=== PATIENT | female | born 1935 | race Caucasian/White ===

== ENCOUNTER 2016-06-30 15:35 | Emergency (ER) | payer MEDICARE, OTHER ==
[~2016-06-30 15:35] MED LIST: AMITIZA24 MCG PO; CALCIUM 600 +1 EAC3 PO; CEFDINIR300 MG PO; COUMADIN5 MG PO; COZAAR50 MG PO; FLONASE 0.05% N16 GM; LANOXIN TAB0.125 MG PO; LEVOTHYROXINE75 MCG PO; LOPRESSOR100 MG PO; LORTAB 5-325 M1 EACH PO; PLAVIX 75 MG TA75 MG PO; PROTONIX40 MG PO; PROVENTIL HFA6.7 GM PO
[2016-06-30 17:04] LABS: HEMOGLOBIN 13.1 gm/dl (12.3-15.3); WHITE BLOOD COUNT 7.4 K/UL (4.5-11.0)
[2016-06-30 17:40] LABS: BUN/CREATININE RATIO 17 (0-10)
== END 2016-06-30 18:02 | disposition home or self-care (01) ==
LOC: ER1 15:35
PROVIDERS: Physician Assistant
DX: H53.8 Other visual disturbances (principal); R09.81 Nasal congestion; I10 Essential (primary) hypertension; I51.9 Heart disease, unspecified; I48.91 Unspecified atrial fibrillation; I50.9 Heart failure, unspecified; H26.9 Unspecified cataract; Z86.73 Personal history of transient ischemic attack (TIA), and cerebral infarction without residual deficits
CPT/HCPCS: 36415; 70450; 71010; 80053; 82550; 82553; 83874; 84484; 85025; 85610; 85730; 93005; 99284

== ENCOUNTER 2016-08-12 06:31 | Emergency (ER) | payer MEDICARE, OTHER ==
[2016-08-12 08:05] LABS: HEMOGLOBIN 13.8 gm/dl (12.3-15.3); RED BLOOD COUNT 4.25 M/UL (4.00-5.10); WHITE BLOOD COUNT 8.4 K/UL (4.5-11.0)
[2016-08-12 08:32] LABS: BUN/CREATININE RATIO 15 (0-10)
== END 2016-08-12 13:57 | disposition home or self-care (01) ==
LOC: ER1 06:31
PROVIDERS: Physician Assistant Medical
DX: J18.9 Pneumonia, unspecified organism (principal); I48.91 Unspecified atrial fibrillation; I50.9 Heart failure, unspecified; E03.9 Hypothyroidism, unspecified; Z79.01 Long term (current) use of anticoagulants; Z79.899 Other long term (current) drug therapy; Z88.0 Allergy status to penicillin; Z86.73 Personal history of transient ischemic attack (TIA), and cerebral infarction without residual deficits
CPT/HCPCS: 36415; 70450; 71010; 80053; 80162; 81001; 82550; 82553; 83605; 83874; 83880; 84484; 85025; 85610; 85730; 86140; 87040; 87086; 93005; 96365; 99284; J1956

== ENCOUNTER → 2016-08-15 | Outpatient (CLI) | payer MEDICARE, OTHER | LOC: LAB 10:08 | DX: H81.13 Benign paroxysmal vertigo, bilateral (principal); J20.8 Acute bronchitis due to other specified organisms; I48.2 Chronic atrial fibrillation; I50.22 Chronic systolic (congestive) heart failure; Z95.0 Presence of cardiac pacemaker | CPT/HCPCS: 36415; 85610 ==

== ENCOUNTER → 2016-08-20 | Outpatient (CLI) | payer MEDICARE, OTHER | LOC: LAB 09:19 | DX: H81.13 Benign paroxysmal vertigo, bilateral (principal); J20.8 Acute bronchitis due to other specified organisms; I48.2 Chronic atrial fibrillation; I50.22 Chronic systolic (congestive) heart failure; Z95.0 Presence of cardiac pacemaker | CPT/HCPCS: 36415; 85610 ==

== ENCOUNTER 2020-03-19 12:21 | Inpatient (IN) | payer MEDICARE, OTHER ==
[~2020-03-19] VITALS: Ht 167.6 cm; Wt 77.1 kg
[~2020-03-19 12:21] MED LIST changes: +ABILIFY2 MG PO; +DILTIAZEM 24HR180 M1 PO; +K-DUR TAB 10 M10 MEQ PO; +LOSARTAN-HCTZ1 EAC1 PO; +QUETIAPINE FUMA25 MG PO; +SEROQUEL25 MG PO; +ZITHROMAX250 MG PO; +ZYRTEC10 MG PO
[2020-03-19 12:59] LABS: HEMOGLOBIN 14.4 gm/dl (12.3-15.3); RED BLOOD COUNT 4.3 M/UL (4.00-5.10); WHITE BLOOD COUNT 13.9 K/UL (4.5-11.0)
[2020-03-19 13:37] LABS: BUN/CREATININE RATIO 13 (0-10)
[2020-03-19] MEDS ORDERED: SEROQUEL25 MG PO (21:19)
[2020-03-19] MEDS ORDERED: ABILIFY 2 MG TAB2 MG PO (21:25)
[2020-03-20 02:49] LABS: WHITE BLOOD COUNT 12.8 K/UL (4.5-11.0)
[2020-03-20 02:50] LABS: HEMOGLOBIN 10.2 gm/dl (12.3-15.3); RED BLOOD COUNT 3.1 M/UL (4.00-5.10)
[2020-03-20 03:08] LABS: BUN/CREATININE RATIO 17 (0-10)
--- NOTE | 2020-03-21 00:05 | NUR ---
0005: PT O2 SAT WAS 88%. WENT IN AND TOLD PT AND REQUESTED SHE PUT HER O2 BACK ON AND SHE REFUSED. TOLD HER THAT HER OXYGEN WAS LOW AND SHE REFUSED AGAIN. WCTM.
[2020-03-21 06:10] LABS: HEMOGLOBIN 10.7 gm/dl (12.3-15.3); RED BLOOD COUNT 3.2 M/UL (4.00-5.10); WHITE BLOOD COUNT 10.7 K/UL (4.5-11.0)
[2020-03-21 06:26] LABS: BUN/CREATININE RATIO 15 (0-10)
[2020-03-21] MEDS ORDERED: LASIX40 MG PO (11:47)
[2020-03-21] MEDS ORDERED: OMNICEF 300 MG300 MG PO (11:47)
[2020-03-21] MEDS ORDERED: NORVASC5 MG PO (17:46)
== END 2020-03-21 17:44 | disposition home or self-care (01) | DRG 291 ==
LOC: ER1 12:21 → CDU 14:45 → M/S 21:30
PROVIDERS: Emergency Medicine; Physician Assistant; ADMIT Internal Medicine
PROC: 0HQ0XZZ Repair Scalp Skin, External Approach (ICD-10-PCS; principal; 2020-03-19)
PROC: B24BZZZ Ultrasonography of Heart with Aorta (ICD-10-PCS; 2020-03-20)
DX: I11.0 Hypertensive heart disease with heart failure (principal); J96.01 Acute respiratory failure with hypoxia; J18.9 Pneumonia, unspecified organism; I48.20 Chronic atrial fibrillation, unspecified; I50.33 Acute on chronic diastolic (congestive) heart failure; Z20.822 Contact with and (suspected) exposure to COVID-19; E03.9 Hypothyroidism, unspecified; S20.211A Contusion of right front wall of thorax, initial encounter; W18.30XA Fall on same level, unspecified, initial encounter; S00.03XA Contusion of scalp, initial encounter; Y95 Nosocomial condition; S01.01XA Laceration without foreign body of scalp, initial encounter; I08.1 Rheumatic disorders of both mitral and tricuspid valves; D72.829 Elevated white blood cell count, unspecified; I16.0 Hypertensive urgency; R53.81 Other malaise; R42 Dizziness and giddiness; Z79.01 Long term (current) use of anticoagulants; Z95.810 Presence of automatic (implantable) cardiac defibrillator; Z86.73 Personal history of transient ischemic attack (TIA), and cerebral infarction without residual deficits; Y92.129 Unspecified place in nursing home as the place of occurrence of the external cause; Z98.890 Other specified postprocedural states; Z88.6 Allergy status to analgesic agent; Z88.1 Allergy status to other antibiotic agents
CPT/HCPCS: ECHO; 12002; 36415; 36600; 70450; 71111; 72072; 72125; 80053; 80162; 80202; 82550; 82553; 82803; 83605; 83874; 83880; 84484; 85025; 85610; 85730; 87040; 93005; 93306; 93880; 96365; 96366; 96367; 96368; 96375; 99285; J0360; J0696; J1940; J2543; J3370; J7070; Q9967; U0002

== ENCOUNTER 2020-06-07 14:19 | Emergency (ER) | payer MEDICARE, OTHER ==
[~2020-06-07 14:19] MED LIST changes: +ABILIFY 2 MG TAB2 MG PO; +LASIX40 MG PO; +NORVASC5 MG PO; +OMNICEF 300 MG300 MG PO
[2020-06-07 16:10] LABS: HEMOGLOBIN 12.1 gm/dl (12.3-15.3); RED BLOOD COUNT 3.67 M/UL (4.00-5.10); WHITE BLOOD COUNT 10.9 K/UL (4.5-11.0)
[2020-06-07 16:32] LABS: BUN/CREATININE RATIO 12 (0-10)
== END 2020-06-07 18:30 | disposition home or self-care (01) ==
LOC: ER1 14:19
PROVIDERS: Emergency Medicine
DX: S20.211A Contusion of right front wall of thorax, initial encounter (principal); S00.03XA Contusion of scalp, initial encounter; I48.91 Unspecified atrial fibrillation; I50.9 Heart failure, unspecified; Z86.73 Personal history of transient ischemic attack (TIA), and cerebral infarction without residual deficits; W19.XXXA Unspecified fall, initial encounter; Z20.822 Contact with and (suspected) exposure to COVID-19
CPT/HCPCS: 70450; 71111; 72125; 80053; 82550; 82553; 83874; 84484; 85025; 85610; 85730; 93005; 99284

== ENCOUNTER → 2020-07-15 | Outpatient (CLI) | payer MEDICARE, OTHER | LOC: CT 09:17 | DX: I48.91 Unspecified atrial fibrillation (principal); R42 Dizziness and giddiness; I65.22 Occlusion and stenosis of left carotid artery | CPT/HCPCS: 36415; 70498; 82565; Q9967 ==